=== PATIENT | male | born 1990 | race Caucasian/White ===

== ENCOUNTER 2018-09-02 11:07 | Emergency (ER) | payer OTHER, SELFPAY ==
[2018-09-02 11:08] VITALS: BP 148/96; PULSE 98; RESP 19; TEMP 36.8; O2SAT 97; BMI 25.1
--- NOTE | 2018-09-02 12:08 | PCM.CONS.U ---
Reason for Consult Date of Consultation: 09/02/18 Reason for Consultation: Meatal stenosis unable to urinate History of Present Illness: The patient is a 28 year old male who I seen in the past in the office for a vasectomy presented to the emergency room with difficulty with urination he states he has been using sort of a metal hook to open up the end of the penis so he can urinate. On examination he has severe meatal stenosis. Past Medical History Allergies No Known Allergies Allergy (Verified 09/02/18 11:10) Home Medications: Ambulatory Orders Medication Instructions Recorded NK 09/02/18 Surgical History: no surgical history Lives: With Family Smoking Status: Former smoker Tobacco Use: Non-smoker Alcohol: None Drugs: None Review of Systems Constitutional: Denies: Chills, Fever, Weight Change HEENT: Denies: Head Aches, Sinus Congestion, Sinus Drainage Cardiovascular: Denies: Chest Pain, Palpitations Respiratory: Denies: Cough, Shortness of breath at rest, Sputum production Gastrointestinal: Denies: Abdominal Pain, Nausea, Vomiting Genitourinary: Reports: Dysuria, Retention Musculoskeletal: Denies: Joint Pain, Joint Tenderness Skin: Denies: Rash, Wounds Neurological: Denies: Numbness, Tingling, Focal weakness Psychiatric: Denies: Anxiety, Depression, Homicidal Ideations, Suicidal Ideations Hematologic/ Lymphatic: Denies: Easy Bruising, Easy Bleeding Physical Exam - Physical Exam Vital Signs Temp 98.3 F 09/02/18 11:08 Pulse 98 09/02/18 11:08 Resp 19 H 09/02/18 11:08 BP 148/96 H 09/02/18 11:08 Pulse Ox 97 09/02/18 11:08 Intake & Output 08/31/18 09/01/18 09/02/18 23:59 23:59 23:59 Weight: 79.379 kg General: Alert, Oriented x3 HEENT: Atraumatic Oral: Moist Mucosa Neck: Supple Lungs: Normal air movement Cardiovascular: Regular rate Abdomen: Soft Rectal: Exam deferred Testicle: Right Normal, Left Normal Epididymis: Right Normal, Left Normal Scrotum: No lesions, No warts, No rash Penis: - - Severe meatal stenosis Extremities: No clubbing, No cyanosis, No edema Skin: No rashes Musculoskeletal: No Tenderness to Palpation of Joints or Extremities Lymphatic: No Cervical, Supraclavicular, or Inguinal Adenopathy Neurological: Cranial nerves II-XII grossly intact Psych/Mental Status: Normal Affect, Appropriate Assessment/Plan 28-year-old male presents to the emergency room with severe meatal stenosis barely able to urinate because a pinpoint opening we provided local anesthesia and topical lidocaine I then used a dilator set and stretch the meatus from 12 [place] to 18 [place], he tolerated the stretch stretching fairly well in the emergency room department, recommended he start doing self dilation with a 16 [place] catheter he would be given brisk prescription for this by the ER staff and a few days of antibiotics he can follow-up in my office for a follow-up appointment a few weeks.
--- NOTE | 2018-09-02 12:11 | CON.PCM_ITS ---
Reason for Consult Date of Consultation: 09/02/18 Reason for Consultation: Meatal stenosis unable to urinate History of Present Illness: The patient is a 28 year old male who I seen in the past in the office for a vasectomy presented to the emergency room with difficulty with urination he states he has been using sort of a metal hook to open up the end of the penis so he can urinate. On examination he has severe meatal stenosis. Past Medical History Allergies No Known Allergies Allergy (Verified 09/02/18 11:10) Home Medications: Ambulatory Orders Medication Instructions Recorded NK 09/02/18 Surgical History: no surgical history Lives: With Family Smoking Status: Former smoker Tobacco Use: Non-smoker Alcohol: None Drugs: None Review of Systems Constitutional: Denies: Chills, Fever, Weight Change HEENT: Denies: Head Aches, Sinus Congestion, Sinus Drainage Cardiovascular: Denies: Chest Pain, Palpitations Respiratory: Denies: Cough, Shortness of breath at rest, Sputum production Gastrointestinal: Denies: Abdominal Pain, Nausea, Vomiting Genitourinary: Reports: Dysuria, Retention Musculoskeletal: Denies: Joint Pain, Joint Tenderness Skin: Denies: Rash, Wounds Neurological: Denies: Numbness, Tingling, Focal weakness Psychiatric: Denies: Anxiety, Depression, Homicidal Ideations, Suicidal Ideations Hematologic/ Lymphatic: Denies: Easy Bruising, Easy Bleeding Physical Exam - Physical Exam Vital Signs Temp 98.3 F 09/02/18 11:08 Pulse 98 09/02/18 11:08 Resp 19 H 09/02/18 11:08 BP 148/96 H 09/02/18 11:08 Pulse Ox 97 09/02/18 11:08 Intake & Output 08/31/18 09/01/18 09/02/18 23:59 23:59 23:59 Weight: 79.379 kg General: Alert, Oriented x3 HEENT: Atraumatic Oral: Moist Mucosa Neck: Supple Lungs: Normal air movement Cardiovascular: Regular rate Abdomen: Soft Rectal: Exam deferred Testicle: Right Normal, Left Normal Epididymis: Right Normal, Left Normal Scrotum: No lesions, No warts, No rash Penis: - - Severe meatal stenosis Extremities: No clubbing, No cyanosis, No edema Skin: No rashes Musculoskeletal: No Tenderness to Palpation of Joints or Extremities Lymphatic: No Cervical, Supraclavicular, or Inguinal Adenopathy Neurological: Cranial nerves II-XII grossly intact Psych/Mental Status: Normal Affect, Appropriate Assessment/Plan 28-year-old male presents to the emergency room with severe meatal stenosis barely able to urinate because a pinpoint opening we provided local anesthesia and topical lidocaine I then used a dilator set and stretch the meatus from 12 [place] to 18 [place], he tolerated the stretch stretching fairly well in the emergency room department, recommended he start doing self dilation with a 16 [place] catheter he would be given brisk prescription for this by the ER staff and a few days of antibiotics he can follow-up in my office for a follow-up appointment a few weeks.
--- NOTE | 2018-09-02 12:28 | ED.VISSUMM ---
- ER Visit Summary Date of Service: 09/02/18 Chief Complaint: Unable to urinate History of Present Illness: The patient is a [address] Perdomo. Reports that over the course the past 3 weeks he has had difficulty urinating at times. Reports that what used to be a normal stream has been a smaller strain with pressure. States that he has been unable to since last night. He reports that he relieved this by using a bellybutton piercing to open up his urethra. Physical Examination: Vitals: Stable. Afebrile. General: Well-nourished and well-developed. Head: Normocephalic atraumatic. Neck: Supple, no lymphadenopathy. No JVD. Nontender. Cardiovascular: Regular rate and rhythm. No murmurs. Respiratory: No respiratory distress. Clear to auscultation bilaterally. Abdominal: Soft, nontender, nondistended, normal bowel sounds. No guarding, rebound, or peritoneal signs. : Circumcised male. I am unable to visualize any urethral meatus. Back: Nontender. Extremities: Nontender, no edema. Skin: Normal color, no rash. Neurologic: Alert and oriented ?3. Cranial nerves II through XII are intact. Normal strength and sensation. Psych: Normal affect. Emergency Department Course and Treatment: The patient discussed with Dr. Goncalves who saw him in the emergency department and his opened up his urethral meatus. He was given a dose of Cipro p.o. He refused pain medications. Treatment Plan: Patient will be discharged on 3 days of Cipro. Is given a prescription for a 16 Amharic catheter that he is supposed to use once a day to dilate this. Follow-up Dr. Goncalves in 3 weeks for another exam. Return to the emergency department for any worsening symptoms. Disposition: To home in improved and stable condition. Impression: 1. Urethral meatus stenosis. This note was generated with [employer] dictation software. It may contain incorrect words, spelling, and punctuation that were not noted in review of the chart prior to signing ED Disposition - Plan for ED Patient: Disposition: Home or Assisted Living Instructions: ED Stricture Urethral Prescriptions: Catheter Male,External [Everyday Male Catheter] 1 each MC DAILY #1 each Ciprofloxacin [Cipro] 500 mg PO BID #6 tablet Referrals: Marky Goncalves MD [STAFF PHYSICIAN] - 09/23/18
[2018-09-02] MEDS: Ciprofloxacin 500 MG Tablet PO (12:35)
== END 2018-09-02 12:45 | disposition home or self-care (01) ==
LOC: ED 11:42
PROVIDERS: Emergency Provider Emergency Medicine; Family Provider Internal Medicine; PCP Internal Medicine
DX: N35.911 Unspecified urethral stricture, male, meatal (principal); Z87.891 Personal history of nicotine dependence
CPT/HCPCS: 99283

== ENCOUNTER 2023-07-11 09:57 | Emergency (ER) | payer OTHER, SELFPAY ==
[2023-07-11] VITALS (9 sets, daily range): BP systolic 110–152; BP diastolic 63–101; PULSE 48–67; RESP 9–22; TEMP 30.5–36.6; O2SAT 96–100; BMI 24.1
--- NOTE | 2023-07-11 10:19 | EKG12_ITS ---
Test Reason : GEN ILLNESS Blood Pressure : / mmHG Vent. Rate : 043 BPM Atrial Rate : 043 BPM P-R Int : 150 ms QRS Dur : 104 ms QT Int : 448 ms P-R-T Axes : 015 066 041 degrees QTc Int : 378 ms Marked sinus bradycardia Abnormal ECG Confirmed by Raoul Reagan ([id number]), science editor BERNARD AMRAO ([id number]) on 07/14/2023 1:59:28 PM Referred By: Confirmed By:Raoul Reagan
--- NOTE | 2023-07-11 10:27 | EX.ED.DYSGE1 ---
HPI History of Present Illness Chief Complaint: General Illness Informant: patient and spouse/S.O. Narrative Narrative: 33-year-old male presenting to the emergency room with nausea vomiting and hypothermia. Patient states he underwent urethral surgery yesterday for meatal stricture left leg. He states he had MAC anesthesia. He was discharged home with a catheter. Earlier this morning he began to have nausea and vomiting. He has not yet had a bowel movement. He has had some flatus. He notes his urine is dark. He is mostly doing dry heaving currently. States he feels very weak and lightheaded. His forehead temperature was 90 degrees at home. He states it was 86 degrees in triage. Again this was a forehead temperature. Oral temperature for me is 97.2. He has difficulty keeping his mouth closed due to nausea. He states he believes he is breathing okay denies any chest pain. He feels lightheaded. Patient states he is not currently on an antibiotic and currently takes no medications. [facility] Medical History (Updated 07/11/23 @ 10:[address] 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 stricture Home Medications external catheter, male 22 mm to 25 mm #1 ea 09/02/18 [Rx Last Taken Unknown] Allergy/AdvReac Type Severity Reaction Status Date / Time acetaminophen [From Percocet] AdvReac Intermediate Nausea/Vom/ Verified 07/11/23 09:58 Diarrhea oxycodone [From Percocet] AdvReac Intermediate Nausea/Vom/ Verified 07/11/23 09:58 Diarrhea Social History Smoking Status: Current every day smoker tobacco type: cigarettes ROS ROS ED Constitutional Constitutional ED: Reports chills and sweats; Denies weight loss Eyes Eyes: Denies change in vision or diplopia ENT ENT ED: Denies ear pain, rhinorrhea or sore throat Cardiovascular Cardiovascular: Reports other Details: Lightheadedness ; Denies chest pain, orthopnea, palpitations or racing heartbeat Respiratory/Chest Respiratory/Chest: Denies cough, dyspnea or orthopnea Gastrointestinal Gastrointestinal: Reports nausea and vomiting; Denies abdominal pain or diarrhea Genitourinary Genitourinary ED: Reports other Details: Indwelling Ingram catheter since yesterday. dark urine ; Denies dysuria, hematuria or urinary frequency Musculoskeletal Musculoskeletal: Reports myalgias; Denies arthralgias Integumentary Denies abscess or rash Neurologic Neurologic: Denies headache(s) or weakness Psychiatric Psychiatric: Denies anxiety, depression, suicidal ideation or suicidal thoughts Endocrine Endocrinology: Denies polydipsia, polyphagia or polyuria Allergic/Immunologic Allergic/Immunologic ED: Denies mouth swelling, tongue swelling or urticaria EXAM Physical Exam Narrative Exam Narrative: Patient is pursed lip breathing deliberate and slow. He appears quite nauseated Const Vital Signs: 07/11/23 09:59 07/11/23 10:02 07/11/23 11:06 Temperature 86.9 F L 86.9 F L 97.5 F L Temperature Source Temporal Temporal Oral Pulse Rate 48 L 48 L 67 Respiratory Rate 18 18 22 H Respiratory Effort Respiratory Pattern Blood Pressure 152/101 H 152/101 H 138/90 H Blood Pressure Mean 118 118 106 Pulse Ox 100 100 100 Oxygen Delivery Method Room Air Room Air Room Air 07/11/23 11:13 07/11/23 11:56 07/11/23 11:56 Temperature 97.9 F 97.9 F Temperature Source Oral Oral Pulse Rate 63 63 Respiratory Rate 19 H 19 H Respiratory Effort Normal Non-Labored Respiratory Pattern Tachypnea Blood Pressure 135/81 H 135/81 H Blood Pressure Mean 99 99 Pulse Ox 99 100 Oxygen Delivery Method Room Air Room Air 07/11/23 12:00 07/11/23 13:00 07/11/23 14:00 Temperature 97.5 F L Temperature Source Oral Pulse Rate 62 56 L 55 L Respiratory Rate 17 14 9 L Respiratory Effort Respiratory Pattern Blood Pressure 126/87 H 129/87 H 110/63 Blood Pressure Mean 100 101 78 Pulse Ox 99 96 97 Oxygen Delivery Method Room Air Room Air Room Air 07/11/23 15:00 Temperature Temperature Source Pulse Rate 61 Respiratory Rate 15 Respiratory Effort Respiratory Pattern Blood Pressure 116/86 H Blood Pressure Mean 96 Pulse Ox 98 Oxygen Delivery Method Room Air Positive well nourished and well developed General Appearance ED: well developed HEENT Reports normocephalic, head/scalp atraumatic and moist mucous membranes Eyes PERRL and EOMs intact bilaterally Neck no lymphadenopathy, supple and no JVD Resp normal respiratory effort and clear to auscultation bilaterally Cardio regular rate, regular rhythm and no murmurs Rate: bradycardia GI normal to inspection, nondistended, normoactive bowel sounds and non-tender Palpation: soft Narrative: Indwelling Ingram catheter Back/Spine no CVA tenderness and normal ROM Extremity normal to inspection General Extremety ED: Negative for edema General Extremity: Negative for edema Neuro oriented x3 and CN's II-XII intact bilaterally Sensorium / Orientation: alert Motor Exam: strength 5/5 throughout Psych Mood & Affect: anxious; Negative for depressed or tearful Skin no rashes or lesions noted and no wounds MDM MDM MDM Narrative Medical decision making narrative: IV was established the patient received IV fluids and Zofran. 2 doses Zofran did not relieve his nausea and eventually we gave Compazine and Benadryl which did significantly improve his symptoms. Heart rate has improved down to the 60s. Patient overall states he feels significantly better. White count was elevated at 16.6 platelet count 325 hemoglobin 15.9. Creatinine 0.94 with an anion gap of 10 and a CO2 of 25. Lactic acid initially elevated 2.6 now down to 1.3. Liver enzymes are normal troponin is negative lipase 42 urinalysis with 50-100 red blood cells 0 white cells 0 bacteria. Blood cultures were obtained and sent. CT of the pelvis was obtained. I do not see any acute intra-abdominal pathology to explain his symptoms. Patient is now tolerating p.o. fluids. His urine output has picked up and is clearing. At this point I will write for the patient to have nausea medication at home. Would encourage continued oral hydration. Follow-up with his surgeon return if needed History & Record Review Discussion w/independent historian: Patient Lab Data Attestation: I reviewed the patient's lab results. Labs: Laboratory Results - last 24 hr 07/11/23 07/11/23 07/11/23 10:15 11:29 14:20 WBC 16.6 H RBC 5.12 Hgb 15.9 Hct 44.8 MCV 87.5 MCH 31.1 MCHC 35.5 RDW Std Deviation 38.0 RDW Coeff of Paresh 11.8 Plt Count 325 MPV 9.4 Immature Gran % (Auto) 0.500 Neut % (Auto) 81.7 H Lymph % (Auto) 11.3 L Kay % (Auto) 6.1 Eos % (Auto) 0.2 Baso % (Auto) 0.2 Absolute Neuts (auto) 13.5 H Absolute Lymphs (auto) 1.88 Nucleated RBC % 0 PT 14.3 INR 1.1 APTT 23.5 L Sodium 141 Potassium 3.5 Chloride 106 Carbon Dioxide 25.0 Anion Gap 10 BUN 13 Creatinine 0.94 Estim Creat Clear Calc 113.25 Est GFR (MDRD) Af Amer 118 Est GFR (MDRD) Non-Af 97 BUN/Creatinine Ratio 13.9 Glucose 134 H Lactic Acid 2.6 H* 1.3 Calcium 9.2 Total Bilirubin 0.90 Direct Bilirubin 0.28 AST 16 ALT 23 Alkaline Phosphatase 74 Troponin I High Sens < 3 L Total Protein 7.6 Albumin 4.3 Globulin 3.3 Lipase 42 Urine Color Yellow Urine Clarity Sl. Cloudy Urine pH 9.0 Ur Specific [place] 1.015 Urine Protein 100 H Urine Glucose (UA) Normal Urine Ketones 150 A* Urine Occult Blood 250 H Urine Nitrite Negative Urine Bilirubin Negative Urine Urobilinogen 4 H Ur Leukocyte Esterase 100 H Urine RBC 50-100 SEEN Urine WBC 0 SEEN Ur Squamous Epith Cells 0 SEEN Amorphous Sediment 1+ Urine Bacteria 0 SEEN Urine Mucus 0 SEEN Radiography Diagnostic Testing: Clinical Impression(s) from Imaging Studies Chest X-Ray 07/11/23 10:55 IMPRESSION: Normal x-ray examination of the chest. Electronically Signed: Derrick Neri MD at 11:15 EDT , Abdomen/Pelvis CT 07/11/23 12:22 IMPRESSION: Ingram catheter is seen within the urinary bladder. There is evidence of diffuse bladder wall thickening with increased markings in the surrounding fat more prominent on the right side. This most likely represents inflammatory change. Electronically Signed: Derrick Neri MD at 13:17 EDT , EKG Initial EKG: Attestation: I personally reviewed and interpreted this EKG as follows: Comments: Sinus bradycardia ventricular rate of 43 bpm. Discharge Plan Triage Chief Complaint: General Illness ED Provider: Ryne Hamilton Dx/Rx/DC Orders Prescriptions: No Action (DME) external catheter, male 1 EACH misc 1 ea miscellaneous DAILY Qty: 1 0RF Rx Instructions: 16 Yoruba Primary Care Provider: Jaguar Perdomo Referrals: Jaguar Perdomo MD [Primary Care Provider] -
[2023-07-11 10:53] LABS: Absolute Lymphocyte Count 1.88 X10^3/uL (0.83-4.51); Absolute Neutrophil Count 13.5 X10^3/uL (2.0-7.7); Basophil# 0.03 X10^3/uL; Basophil% 0.2 % (0-1); Eosinophil# 0.04 X10^3/uL; Eosinophils% 0.2 % (0-5); Hematocrit 44.8 % (40-54); Hemoglobin 15.9 g/dL (13.0-16.5); Lymphocyte # 1.88 X10^3/ul (0.83-4.51); Lymphocyte % 11.3 % (19-41); Mean Corp Hgb Conc 35.5 g/dL (32-36); Mean Corpuscular Hgb 31.1 pg (27.0-32.0); Mean Corpuscular Volume 87.5 fL (80-94); Mean Platelet Vol. 9.4 fl (6.2-12.0); Monocyte# 1.01 X10^3/uL; Monocyte% 6.1 % (0-10); NRBC Flagged by Analyzer 0 % (0-5); Neutrophil # 13.54 X10^3/uL (2.7-7.7); Neutrophil % 81.7 % (47-70); Platelet Count 325 K/mm3 (150-450); RBC Distribution Width CV 11.8 % (11.6-14.6); Red Blood Count 5.12 M/mm3 (4.6-6.2); White Blood Count 16.6 K/mm3 (4.4-11.0)
--- NOTE | 2023-07-11 10:55 | RAD_ITS ---
STUDY: X-RAY CHEST REASON FOR EXAM: Male, 33 years old. Bradycardia TECHNIQUE: Single AP portable view of the chest. COMPARISON: None. FINDINGS: EKG electrodes are seen. The lungs are clear and expanded. There is no demonstrated pleural abnormality. Normal size heart. Normal mediastinum and emiliana. Normal visualized pulmonary arteries. Normal visualized aortic arch and descending thoracic aorta. Normal visualized thoracic spine. Normal visualized ribs, clavicles, and shoulders. There is no demonstrated abnormality of the visualized soft tissue structures of the upper abdomen. RAD/Chest 1 View (Portable) IMPRESSION: Normal x-ray examination of the chest. Electronically Signed: Derrick Neri MD at 11:15 EDT ,
[2023-07-11] MEDS: 0.9% Normal Saline (1000mL) 1,000 ML 1000 ML IV ×2 (11:05→11:59)
[2023-07-11] MEDS: Ondansetron 4 MG/2 ML Vial IV ×2 (11:05→12:27)
[2023-07-11 11:06] LABS: Lactic Acid 2.6 mmol/L (0.4-1.9)
[2023-07-11 11:07] LABS: AST(SGOT) 16 U/L (15-37); Alanine Aminotransfer ALT/SGPT 23 U/L (16-61); Albumin, Serum 4.3 g/dL (3.2-5.0); Alkaline Phosphatase 74 U/L (45-117); Bilirubin, Direct 0.28 mg/dL (0.00-0.30); Globulin 3.3 g/dL (2.2-4.2); International Normalized Ratio 1.1; Lipase 42 U/L (13-75); Protein, Total 7.6 g/dL (6.4-8.2); Prothrombin Time (Protime)PT. 14.3 SECONDS (11.7-14.9); Troponin-I HS < 3 pg/mL (3.0-78.0)
[2023-07-11 11:12] LABS: Partial Thromboplast Time 23.5 Seconds (24.1-36.2)
[2023-07-11 11:34] LABS: Bacteria 0 SEEN /hpf (None Seen); Mucous, Urine 0 SEEN /hpf (<or=2+); Squamous Epithelial Cells - UA 0 SEEN /hpf (0-5); White Blood Cells 0 SEEN /hpf (0-5)
[2023-07-11 11:38] LABS: Color, Urine Yellow (Yellow); Glucose, Dipstick Normal (Normal); Leukocyte Esterase-Dipstick 100 /ul (Negative); Nitrite-Dipstick Negative (Negative); Occult Blood-Urine 250 /ul (Negative); Protein-Dipstick 100 mg/dl (Negative); Specific Gravity, Urine 1.015 (1.002-1.030); Urine Bilirubin Dipstick Negative (Negative); Urine Clarity Sl. Cloudy (Clear); Urine Urobilinogen 4 mg/dl (Normal)
[2023-07-11 11:40] LABS: Ketone-Dipstick 150 mg/dl (Negative)
[2023-07-11 11:57] LABS: Red Blood Cells-Urine 50-100 SEEN /hpf (0-5)
[2023-07-11 11:58] LABS: Amorphous Sediment 1+
[2023-07-11 12:17] LABS: Anion Gap 10 (5-15); BUN 13 mg/dL (7-18); BUN/Creat Ratio 13.9 RATIO (10-20); Calcium,Total 9.2 mg/dL (8.5-10.1); Chloride 106 mmol/L (98-107); Creatinine, Serum 0.94 mg/dL (0.70-1.30); EST Glomerular Filtration Rate 97 mL/min (>60); Est Glom Filt Rate - Afr Amer 118 mL/min (>60); Estimated Creatinine Clearance 113.25 ml/min; Glucose 134 mg/dL (74-106); Potassium 3.5 mmol/L (3.5-5.1); Sodium Level 141 mmol/L (136-145)
--- NOTE | 2023-07-11 12:22 | CT_ITS ---
STUDY: CT ABDOMEN AND PELVIS WITH CONTRAST REASON FOR EXAM: Male, 33 years old. Vomiting. Recent surgery. RADIATION DOSAGE (If Supplied By Facility): CTDIvol = ( 10.33 ) mGy, DLP = ( 810.93 ) mGycm TECHNIQUE: Transaxial images were obtained from the dome of the diaphragm to the symphysis pubis without oral contrast. IV 100mL Isovue-370 was administered. Sagittal and coronal images were reconstructed. Individualized dose optimization techniques were used for this CT. COMPARISON: None. FINDINGS: The visualized lung bases are unremarkable. The visualized portions of the heart are within normal limits. Normal liver. Normal gallbladder and extrahepatic biliary system. Normal spleen. Normal pancreas. Normal bilateral adrenal glands. Normal right kidney. Normal left kidney. Normal visualized stomach. Normal small intestine. Normal colon. The appendix is visualized and appears normal. Normal abdominal aorta. Normal inferior vena cava. Normal retroperitoneum. A Ingram catheter is seen within the urinary bladder. There is diffuse bladder wall thickening. Increased markings are seen in the surrounding peritoneal fat more prominent on the right lateral aspect. Cystitis should BE ruled out. Normal abdominal wall. Normal osseous structures. CT/Abdomen/Pelvis W IV Cont ONLY IMPRESSION: Ingram catheter is seen within the urinary bladder. There is evidence of diffuse bladder wall thickening with increased markings in the surrounding fat more prominent on the right side. This most likely represents inflammatory change. Electronically Signed: Derrick Neri MD at 13:17 EDT ,
[2023-07-11] MEDS: DiphenhydrAMINE 50 MG/ML Syringe 25 MG IV (13:28)
[2023-07-11] MEDS: proCHLORPERazine 10 MG/2 ML Vial IV (13:30)
[2023-07-11 14:32] LABS: Reflex Lactate? Y
[2023-07-11 15:02] LABS: Lactic Acid 1.3 mmol/L (0.4-1.9)
== END 2023-07-11 16:10 | disposition home or self-care (01) ==
PROVIDERS: Emergency Provider Emergency Medicine; PCP Internal Medicine; Visit Provider Emergency Medicine
DX: R11.2 Nausea with vomiting, unspecified (principal); F17.210 Nicotine dependence, cigarettes, uncomplicated
CPT/HCPCS: 71045; 74177; 80048; 80076; 81001; 83605; 83690; 84484; 85025; 85610; 85730; 87040; 93005; 96361; 96374; 96375; 96376; 99284; J7030; Q9967; A4216; J2405